=== PATIENT | male | born 1970 | race Caucasian/White ===

== ENCOUNTER 2020-01-10 15:20 | Emergency (ER) | payer OTHER ==
[~2020-01-10] VITALS: Ht 172.7 cm; Wt 87.3 kg
[2020-01-10 15:37] VITALS: BP 136/85
--- NOTE | 2020-01-10 15:45 | NUR ---
PT HERE WITH C/O RIGHT SHOULDER PAIN THAT STARTED ALST NIGHT AFTER INJURY.
--- NOTE | 2020-01-10 17:40 | NUR ---
Patient/Caregiver given discharge instructions and they have confirmed that they understand the instructions. Patient ambulatory with steady gait.
== END 2020-01-10 17:48 | disposition home or self-care (01) ==
LOC: ED 17:44
DX: S16.1XXA Strain of muscle, fascia and tendon at neck level, initial encounter (principal); S43.101A Unspecified dislocation of right acromioclavicular joint, initial encounter; Y04.8XXA Assault by other bodily force, initial encounter; Y93.89 Activity, other specified; Y92.410 Unspecified street and highway as the place of occurrence of the external cause; Y99.8 Other external cause status
CPT/HCPCS: 72072; 72125; 99284